=== PATIENT | female | born 1950 | race African-American/Black ===

== ENCOUNTER → 2017-07-22 | Outpatient (CLI) | payer MEDICARE, OTHER ==
[~2017-07-22] MED LIST: ALPR0.5T6 PO; AMLO5TAB2 PO; CELE200C PO; DIPH25CA61 PO; FLUO40CA2 PO; GABA800T2 PO; HYDR12.58 PO; LEVO100T5 PO; LISI-170 PO; MAGN400T7 PO; OMEP-110 PO; OXYB5TAB7 PO; OXYC15TA PO; POTA10TA5 PO; RANI150T4 PO; ZOLP5TAB6 PO
[2017-07-22 13:31] LABS: MICROSCOPIC NOT IND
[2017-07-22 13:39] LABS: CULTURE INDICATED? NO
[2017-07-22 13:44] LABS: BASOPHILS # (AUTO) 0.04 x10^3/uL (0-0.1); BASOPHILS % (AUTO) 1 % (0-1); EOSINOPHILS # (AUTO) 0.29 x10^3/uL (0-0.4); EOSINOPHILS % (AUTO) 5 % (1-7); LYMPHOCYTES # (AUTO) 2.29 x10^3/uL (1-3.4); LYMPHOCYTES % (AUTO) 41 % (22-44); MD NO; MEAN CORPUSCULAR HEMOGLOBIN 30.1 pg (27.0-34.8); MEAN CORPUSCULAR VOLUME 91.1 fL (80-100); MEAN PLATELET VOLUME 7.8 fL (7.4-10.4); MONOCYTES # (AUTO) 0.43 x10^3/uL (0.2-0.8); MONOCYTES % (AUTO) 8 % (2-9); NEUTROPHILS # (AUTO) 2.52 x10^3/uL (1.8-6.8); NEUTROPHILS % (AUTO) 45 % (42-75); PLATELET COUNT 260 x10^3/uL (130-400); RED BLOOD COUNT 3.87 x10^6/uL (3.82-5.3); RED CELL DISTRIBUTION WIDTH 13.5 % (9.6-15.2)
[2017-07-22 13:58] LABS: ALANINE AMINOTRANSFERASE 28 U/L (12-78); ALBUMIN 3.5 g/dL (3.4-5.0); ANION GAP 6 mmol/L (5-15); CALCIUM 8.6 mg/dL (8.5-10.1); CHLORIDE 107 mmol/L (98-107); CREATININE 0.99 mg/dL (0.55-1.02)
[2017-07-22 14:00] LABS: ALKALINE PHOSPHATASE 84 U/L (45-117); BILIRUBIN,TOTAL 0.6 mg/dL (0.2-1.0); TOTAL PROTEIN 7.2 g/dL (6.4-8.2)
== END | disposition home or self-care (01) ==
LOC: STAR 11:25
PROVIDERS: ATTEND Orthopaedic Surgery
DX: Z01.818 Encounter for other preprocedural examination (principal); I49.1 Atrial premature depolarization; M17.11 Unilateral primary osteoarthritis, right knee
CPT/HCPCS: 36415; 80053; 81003; 85025; 87081; 93005

== ENCOUNTER 2017-07-28 06:42 | Inpatient (IN) | payer MEDICARE, OTHER ==
[~2017-07-28] VITALS: Ht 160 cm; Wt 67.7 kg
[~2017-07-28 06:42] MED LIST changes: +EPINEPHRINE 1 MG/ML, 1ML ONE; +KETOROLAC 60 MG/2 ML ONE; +SODIUM CHLORIDE 0.9% 100 ML ONE; +TRANEXAMIC ACID 100 MG/ML, 10ML ONE
[2017-07-28] MEDS ORDERED: ROPIvacaine/PF 0.5%, 20 ML ONE (06:53)
[2017-07-28] MEDS ORDERED: ROPIvacaine/PF 0.2% , 100 ML ONE (06:59)
[2017-07-28] MEDS ORDERED: LACTATED RINGERS 1,000 ML IV SCH (07:21)
[2017-07-28 08:00] VITALS: BP 110/72
[2017-07-28] MEDS ORDERED: VANCOMYCIN PER PHARMACY MC ONE (08:14)
[2017-07-28] MEDS ORDERED: MIDAZOLAM 1 MG/ML, 2ML ONE (08:20)
[2017-07-28] MEDS ORDERED: FENTANYL PF 100 MCG/2ML ONE ×2 (08:20→11:26)
[2017-07-28] MEDS ORDERED: VANCOMYCIN 1,200 MG in SODIUM CHLORIDE 0.9% 250 ML IV ONE (09:00)
[2017-07-28] MEDS ORDERED: MIDAZOLAM 1 MG/ML, 2ML IV PRN (10:30)
[2017-07-28] MEDS ORDERED: HYDROcodone/APAP 7.5-325MG/15ML UDC PO PRN (10:30)
[2017-07-28] MEDS ORDERED: DIAZEPAM 5 MG/ML, 2ML IVPush PRN (10:30)
[2017-07-28] MEDS ORDERED: ONDANSETRON 2MG/ML, 2ML IVPush PRN (10:30)
[2017-07-28] MEDS ORDERED: PROMETHAZINE 12.5 MG SUPP PR PRN ×2 (10:30→12:00)
[2017-07-28] MEDS ORDERED: LABETALOL 5MG/ML, 20ML IV PRN (10:30)
[2017-07-28] MEDS ORDERED: ACETAMINOPHEN 325 MG TABLET PO PRN (10:30)
[2017-07-28] MEDS ORDERED: EPHEDRINE 50 MG/ML, 1ML IVPush PRN (10:30)
[2017-07-28] MEDS ORDERED: hydrALAzine 20 MG/ML, 1ML IV PRN (10:30)
[2017-07-28] MEDS ORDERED: METOPROLOL 1 MG/ML, 5ML IV PRN (10:30)
[2017-07-28] MEDS ORDERED: OXYcodone 5 MG/5 ML ORAL.SOL UDC PO PRN (10:30)
[2017-07-28] MEDS ORDERED: ALBUTEROL SULFATE 2.5 MG/3 ML NPPB PRN (10:30)
[2017-07-28] MEDS ORDERED: HYDROmorphone 1 MG/ML, 1ML IV PRN ×2 (10:30→12:00)
[2017-07-28] MEDS ORDERED: DEXAMETHASONE 4 MG/ML, 1ML ONE (10:48)
[2017-07-28] MEDS ORDERED: CEFAZOLIN 1,000 MG ONE (10:48)
[2017-07-28] MEDS ORDERED: ONDANSETRON 2MG/ML, 2ML ONE (10:48)
[2017-07-28] MEDS ORDERED: PROPOFOL 10 MG/ML, 20ML ONE (10:48)
[2017-07-28] MEDS ORDERED: BUPIVACAINE/PF 0.25% ONE (10:49)
[2017-07-28] MEDS ORDERED: ACETAMINOPHEN 650 MG/20.3 ML UDC ONE (11:26)
[2017-07-28] MEDS ORDERED: OXYcodone 5 MG/5 ML ORAL.SOL UDC ONE (11:27)
[2017-07-28] MEDS: FENTANYL PF 100 MCG/2ML IV PRN ×2 (11:40→11:57)
[2017-07-28 12:00] VITALS: BP 118/77
[2017-07-28] MEDS ORDERED: ZOLPIDEM 5MG TABLET PO PRN (12:00)
[2017-07-28] MEDS ORDERED: TRANEXAMIC ACID 1,000 MG in SODIUM CHLORIDE 0.9% 100 ML IVPB ONE (12:00)
[2017-07-28] MEDS ORDERED: DIAZEPAM 5 MG TABLET PO PRN (12:00)
[2017-07-28] MEDS ORDERED: BISACODYL 10 MG SUPP PR PRN (12:00)
[2017-07-28] MEDS ORDERED: DIPHENHYDRAMINE 50 MG CAPSULE PO PRN (12:00)
[2017-07-28] MEDS ORDERED: ONDANSETRON 4 MG TABLET PO PRN (12:00)
[2017-07-28] MEDS ORDERED: OXYcodone IR 5MG TABLET PO PRN (12:00)
[2017-07-28] MEDS ORDERED: HYDROmorphone 2 MG/ML, 1ML ONE (12:00)
[2017-07-28] MEDS ORDERED: SENNA/DOCUSATE TABLET PO PRN (12:00)
[2017-07-28] MEDS ORDERED: ALUMINUM/MAG/SIMETHICONE 30 ML UDC PO PRN (12:00)
[2017-07-28] MEDS ORDERED: PROMETHAZINE 25 MG/ML, 1ML IM PRN (12:00)
[2017-07-28] MEDS ORDERED: ONDANSETRON 2MG/ML, 2ML IV PRN (12:00)
[2017-07-28] MEDS ORDERED: MAGNESIUM HYDROXIDE 8%, 30ML UDC PO PRN (12:00)
[2017-07-28] MEDS ORDERED: VANCOMYCIN 1,000 MG ONE (13:09)
[2017-07-28] MEDS: D5%-0.45% NACL 1,000 ML IV SCH ×2 (13:49→23:00)
[2017-07-28] MEDS: ACETAMINOPHEN 500 MG TABLET PO SCH ×2 (13:49→20:08)
[2017-07-28 13:54] VITALS: BP 123/80
[2017-07-28] MEDS: OXYBUTYNIN CHLORIDE 5 MG TABLET PO SCH ×2 (16:03→20:08)
[2017-07-28] MEDS: GABAPENTIN 400 MG CAPSULE PO SCH ×2 (16:03→20:08)
[2017-07-28] MEDS: OXYcodone IR 5MG TABLET PO SCH ×3 (16:04→23:32)
[2017-07-28] MEDS: ASPIRIN 81 MG TABLET EC PO SCH (16:04)
[2017-07-28] MEDS: CEFAZOLIN PMX 1GM/50ML 50 ML IVPB SCH (18:01)
[2017-07-28] MEDS: DOCUSATE 100 MG CAPSULE PO SCH (20:08)
[2017-07-28 20:11] VITALS: BP 104/69
[2017-07-29 00:06] VITALS: BP 108/68
[2017-07-29] MEDS: CEFAZOLIN PMX 1GM/50ML 50 ML IVPB SCH (01:58)
[2017-07-29 02:32] VITALS: BP 108/70
[2017-07-29] MEDS: OXYcodone IR 5MG TABLET PO SCH ×3 (04:29→13:26)
[2017-07-29] MEDS: ACETAMINOPHEN 500 MG TABLET PO SCH ×2 (04:29→13:26)
[2017-07-29] MEDS: ASPIRIN 81 MG TABLET EC PO SCH (05:27)
[2017-07-29] MEDS: D5%-0.45% NACL 1,000 ML IV SCH (05:28)
[2017-07-29] MEDS ORDERED: DEXAMETHASONE 4 MG/ML, 1ML IVPush SCH (06:00)
[2017-07-29 06:49] VITALS: BP 100/68
[2017-07-29] MEDS: GABAPENTIN 400 MG CAPSULE PO SCH (08:39)
[2017-07-29] MEDS: DOCUSATE 100 MG CAPSULE PO SCH (08:42)
[2017-07-29] MEDS: OXYBUTYNIN CHLORIDE 5 MG TABLET PO SCH (08:47)
[2017-07-29] MEDS ORDERED: FLUOXETINE HCL 20 MG CAPSULE PO SCH (09:00)
[2017-07-29] MEDS ORDERED: POTASSIUM CHLORIDE 10 MEQ TABLET.ER PO SCH (09:00)
[2017-07-29] MEDS ORDERED: OMEPRAZOLE 20 MG CAPSULE.DR PO SCH (09:00)
[2017-07-29] MEDS ORDERED: AMLODIPINE 5 MG TABLET PO SCH (09:00)
[2017-07-29] MEDS ORDERED: HYDROCHLOROTHIAZIDE 12.5 MG CAPSULE PO SCH (09:00)
[2017-07-29] MEDS ORDERED: LEVOTHYROXINE 100 MCG TABLET PO SCH (09:00)
[2017-07-29] MEDS ORDERED: MAGNESIUM OXIDE 400 MG TABLET PO SCH (09:00)
[2017-07-29] MEDS ORDERED: MULTIVITAMINS/MINERALS TABLET PO SCH (09:00)
[2017-07-29] MEDS ORDERED: LISINOPRIL 20 MG TABLET PO SCH (09:00)
[2017-07-29] MEDS ORDERED: KETOROLAC 30 MG/1 ML IV SCH (12:00)
== END 2017-07-29 15:01 | disposition home or self-care (01) | DRG 470 ==
LOC: ORIP 06:42 → 4NOR 12:55 → DCLOUNGE 07-29 14:38
PROVIDERS: ADMIT Orthopaedic Surgery; ATTEND Orthopaedic Surgery
PROC: 0SRC0J9 Replacement of Right Knee Joint with Synthetic Substitute, Cemented, Open Approach (ICD-10-PCS; principal; 2017-07-28 11:00)
DX: M17.11 Unilateral primary osteoarthritis, right knee (principal); E03.9 Hypothyroidism, unspecified; I10 Essential (primary) hypertension; K21.9 Gastro-esophageal reflux disease without esophagitis; F32.9 Major depressive disorder, single episode, unspecified; G89.29 Other chronic pain; M21.00 Valgus deformity, not elsewhere classified, unspecified site; Z87.891 Personal history of nicotine dependence
CPT/HCPCS: 36415; 85014; 85018; C1713; J0171; J0690; J1100; J1170; J1885; J2250; J2405; J2704; J2795; J3010; J3370; J3490; C1776; J7050; J7120

== ENCOUNTER 2018-04-27 18:18 | Emergency (ER) | payer MEDICARE, OTHER ==
[~2018-04-27] VITALS: Ht 160 cm; Wt 61.0 kg
[~2018-04-27 18:18] MED LIST changes: -AMLO5TAB2 PO; +AMLO5TAB7 PO; -EPINEPHRINE 1 MG/ML, 1ML ONE; -KETOROLAC 60 MG/2 ML ONE; -SODIUM CHLORIDE 0.9% 100 ML ONE; -TRANEXAMIC ACID 100 MG/ML, 10ML ONE
[2018-04-27] MEDS ORDERED: LIDOCAINE-MPF 1%, 5ML INFIL ONE (18:30)
[2018-04-27] MEDS ORDERED: DIPH,PERTUSS(ACELL),TET VAC/PF 0.5 ML IM-VACC ONE ×2 (18:30→18:49)
[2018-04-27] MEDS ORDERED: LIDOCAINE-MPF 1%, 5ML ONE ×2 (18:48→20:54)
[2018-04-27 18:56] LABS: BASOPHILS # (AUTO) 0.07 x10^3/uL (0-0.1); BASOPHILS % (AUTO) 1 % (0-1); EOSINOPHILS # (AUTO) 0.27 x10^3/uL (0-0.4); EOSINOPHILS % (AUTO) 4 % (1-7); LYMPHOCYTES # (AUTO) 2.05 x10^3/uL (1-3.4); LYMPHOCYTES % (AUTO) 31 % (22-44); MD NO; MEAN CORPUSCULAR HEMOGLOBIN 30.8 pg (27.0-34.8); MEAN CORPUSCULAR HGB CONC 33.9 g/dL (32.4-35.8); MEAN CORPUSCULAR VOLUME 90.7 fL (80-100); MEAN PLATELET VOLUME 7.1 fL (7.4-10.4); MONOCYTES # (AUTO) 0.53 x10^3/uL (0.2-0.8); MONOCYTES % (AUTO) 8 % (2-9); NEUTROPHILS # (AUTO) 3.74 x10^3/uL (1.8-6.8); NEUTROPHILS % (AUTO) 56 % (42-75); PLATELET COUNT 260 x10^3/uL (130-400); RED BLOOD COUNT 3.79 x10^6/uL (3.82-5.3); RED CELL DISTRIBUTION WIDTH 13.7 % (9.6-15.2)
[2018-04-27 19:06] LABS: ANION GAP 6 mmol/L (5-15); CHLORIDE 106 mmol/L (98-107); CREATININE 1.32 mg/dL (0.55-1.02)
[2018-04-27] MEDS ORDERED: SODIUM CHLORIDE 0.9% 1,000ML IVBOLUS ONE (20:00)
[2018-04-27 21:43] VITALS: BP 125/81
== END 2018-04-27 21:45 | disposition home or self-care (01) ==
LOC: ED 18:59
DX: S01.01XA Laceration without foreign body of scalp, initial encounter (principal); E86.0 Dehydration; K21.9 Gastro-esophageal reflux disease without esophagitis; M06.9 Rheumatoid arthritis, unspecified; Z85.3 Personal history of malignant neoplasm of breast; Z88.0 Allergy status to penicillin; Z79.82 Long term (current) use of aspirin; Z87.891 Personal history of nicotine dependence; Z88.1 Allergy status to other antibiotic agents; W19.XXXA Unspecified fall, initial encounter; Y93.89 Activity, other specified; Y92.89 Other specified places as the place of occurrence of the external cause; Y99.8 Other external cause status
CPT/HCPCS: 12032; 36415; 70450; 72125; 80048; 85025; 90471; 90715; 96360; 99285; J7030

== ENCOUNTER 2018-05-01 15:45 | Observation (INO) | payer MEDICARE, OTHER ==
[~2018-05-01] VITALS: Ht 157.5 cm; Wt 63.6 kg
[2018-05-01 16:37] LABS: ALANINE AMINOTRANSFERASE 79 U/L (12-78); ALBUMIN 3.9 g/dL (3.4-5.0); ANION GAP 11 mmol/L (5-15); CALCIUM 8.9 mg/dL (8.5-10.1); CHLORIDE 108 mmol/L (98-107); CREATININE 1.23 mg/dL (0.55-1.02)
[2018-05-01 16:39] LABS: ALKALINE PHOSPHATASE 127 U/L (45-117); BILIRUBIN,TOTAL 1.2 mg/dL (0.2-1.0); TOTAL PROTEIN 8.2 g/dL (6.4-8.2)
[2018-05-01 16:48] LABS: MD YES; MEAN CORPUSCULAR HEMOGLOBIN 29.8 pg (27.0-34.8); MEAN CORPUSCULAR HGB CONC 33.6 g/dL (32.4-35.8); MEAN CORPUSCULAR VOLUME 88.8 fL (80-100); MEAN PLATELET VOLUME 7.6 fL (7.4-10.4); PLATELET COUNT 247 x10^3/uL (130-400); RED BLOOD COUNT 4.39 x10^6/uL (3.82-5.3); RED CELL DISTRIBUTION WIDTH 13.5 % (9.6-15.2)
[2018-05-01 16:54] LABS: LYMPH#(MANUAL) 1.29 x10^3/uL (1-3.4); LYMPHS% (MANUAL) 19 % (22-44); MONOS#(MANUAL) 0.34 x10^3/uL (0.3-2.7); MONOS% (MANUAL) 5 % (2-9); SEG#(MANUAL) 5.17 x10^3/uL (1.8-6.8); SEGS% (MANUAL) 76 % (42-75)
[2018-05-01 16:56] LABS: <PLATELET ESTIMATE> ADEQUATE; <PLT MORPHOLOGY> NORMAL PLT MORPH; ANISOCYTOSIS 1+
[2018-05-01 17:02] LABS: FREE T4 (FREE THYROXINE) 1.28 ng/dL (0.76-1.46); THYROID STIMULATING HORMONE 0.95 mIU/L (0.358-3.740)
[2018-05-01 17:55] LABS: MICROSCOPIC NOT IND
[2018-05-01 18:06] LABS: AMPHETAMINE SCREEN, URINE Negative (Negative); BARBITURATE SCREEN, URINE Negative (Negative); BENZODIAZEPINE SCREEN, URINE Negative (Negative); CANNABINOID SCREEN, URINE Negative (Negative); COCAINE SCREEN, URINE Negative (Negative); METHADONE SCREEN, URINE Negative (Negative); OPIATE SCREEN, URINE Negative (Negative)
[2018-05-01 18:08] LABS: CULTURE INDICATED? NO
[2018-05-01 20:00] VITALS: BP 140/102
[2018-05-01] MEDS ORDERED: GABAPENTIN 400 MG CAPSULE ONE (20:44)
[2018-05-01] MEDS ORDERED: ZOLPIDEM 5MG TABLET ONE (20:44)
[2018-05-01] MEDS ORDERED: TEMPLATE NON-FORMULARY MED. (Zolpidem Tartrate** 5 MG) PO SCH (21:00)
[2018-05-01] MEDS ORDERED: TEMPLATE NON-FORMULARY MED. (Ranitidine Hcl** 150 MG) PO SCH (21:00)
[2018-05-01] MEDS ORDERED: TEMPLATE NON-FORMULARY MED. (Gabapentin** 800 MG) PO SCH (21:00)
[2018-05-01] MEDS ORDERED: ACETAMINOPHEN 325 MG TABLET PO PRN (21:00)
[2018-05-02] MEDS ORDERED: LEVOTHYROXINE SODIUM 100 MCG PO SCH (09:00)
[2018-05-02] MEDS ORDERED: HYDROCHLOROTHIAZIDE 12.5 MG CAPSULE PO SCH (09:00)
[2018-05-02] MEDS ORDERED: TEMPLATE NON-FORMULARY MED. (Magnesium Oxide** 400 MG) PO SCH (09:00)
[2018-05-02] MEDS ORDERED: LISINOPRIL 20 MG TABLET PO SCH (09:00)
[2018-05-02] MEDS ORDERED: TEMPLATE NON-FORMULARY MED. (Fluoxetine Hcl** 40 MG) PO SCH (09:00)
[2018-05-02] MEDS ORDERED: TEMPLATE NON-FORMULARY MED. (Amlodipine Besylate** 2.5 MG) PO SCH (09:00)
[2018-05-02] MEDS ORDERED: OMEPRAZOLE 20 MG CAPSULE.DR PO SCH (09:00)
== END 2018-05-01 23:00 | disposition home or self-care (01) ==
LOC: ED 18:47 → EDIP 19:06
PROVIDERS: ADMIT Hospitalist; ATTEND Hospitalist
DX: F22 Delusional disorders (principal); I12.9 Hypertensive chronic kidney disease with stage 1 through stage 4 chronic kidney disease, or unspecified chronic kidney disease; K21.9 Gastro-esophageal reflux disease without esophagitis; E89.0 Postprocedural hypothyroidism; K58.9 Irritable bowel syndrome, unspecified; N18.3 Chronic kidney disease, stage 3 (moderate); Z85.3 Personal history of malignant neoplasm of breast; Z87.891 Personal history of nicotine dependence; Z90.13 Acquired absence of bilateral breasts and nipples; Z90.710 Acquired absence of both cervix and uterus; Z91.14 Patient's other noncompliance with medication regimen; Z96.651 Presence of right artificial knee joint; Z98.1 Arthrodesis status; Z79.899 Other long term (current) drug therapy; Z88.8 Allergy status to other drugs, medicaments and biological substances
CPT/HCPCS: 36415; 70450; 80053; 80307; 81003; 84439; 84443; 85025; 99285; G0378

== ENCOUNTER 2019-10-16 13:50 | Inpatient (IN) | payer MEDICARE, OTHER ==
[~2019-10-16] VITALS: Ht 160 cm; Wt 58.1 kg
[~2019-10-16 13:50] MED LIST changes: +AMLO-150 PO; +AMLO10TA8 PO; +AMLO2.5T5 PO; -AMLO5TAB7 PO; +DICL100T PO; +DULO60CA7 PO; +FAMO20TA7 PO; +FLUO20CA23 PO; +GABA-827 PO; -GABA800T2 PO; +GABA800T5 PO; +HYDR12.517 PO; -HYDR12.58 PO; +HYDROCHLOROTH12.5 MG PO; +LEVO100T PO; +LISI-167 PO; -MAGN400T7 PO; +MAGN400T9 PO; +OXYB5TAB10 PO; -OXYB5TAB7 PO; +OXYC20TA2 PO; +QUET25TA7 PO
[2019-10-16] MEDS ORDERED: DOCUSATE 100 MG CAPSULE PO PRN (14:30)
[2019-10-16] MEDS ORDERED: BISACODYL 10 MG SUPP PR PRN (14:30)
[2019-10-16] MEDS ORDERED: ONDANSETRON ODT 4 MG PO PRN (14:30)
[2019-10-16] MEDS ORDERED: POLYETHYLENE GLYCOL 17 GM PACKET PO PRN (14:30)
[2019-10-16 15:53] VITALS: BP 150/95
[2019-10-16] MEDS ORDERED: MAGN400T50 PO (16:43)
[2019-10-16] MEDS ORDERED: ERGO500018 PO (16:43)
[2019-10-16 19:15] VITALS: BP 125/82
[2019-10-16] MEDS: ACETAMINOPHEN 325 MG TABLET PO PRN (20:33)
[2019-10-16] MEDS: LORazepam 1MG TABLET PO PRN (20:33)
[2019-10-16] MEDS: GABAPENTIN 400 MG CAPSULE PO SCH (20:34)
[2019-10-17] MEDS: QUETIAPINE 25MG TABLET PO PRN ×2 (04:18→22:16)
[2019-10-17 06:19] LABS: FREE T4 (FREE THYROXINE) 1.5 ng/dL (0.76-1.46); LDL/HDL RATIO 0.8 (0.5-3.0)
[2019-10-17 07:14] LABS: MICROSCOPIC INDICATED
[2019-10-17 07:24] LABS: CULTURE INDICATED? YES
[2019-10-17 07:51] VITALS: BP 144/91
[2019-10-17] MEDS: LORazepam 1MG TABLET PO PRN (08:42)
[2019-10-17] MEDS: DULOXETINE 30 MG CAPSULE.DR PO SCH (08:42)
[2019-10-17] MEDS: GABAPENTIN 400 MG CAPSULE PO SCH ×2 (08:42→20:10)
[2019-10-17] MEDS: OXYcodone IR 5MG TABLET PO SCH ×3 (11:00→20:10)
--- NOTE | 2019-10-17 11:13 | NUR ---
Recommend support with all IADLs/ADLs at time of discharge. Addendum: 10/17/19 at 1114 by Sindy HILL Amended: Links added.
[2019-10-17 19:15] VITALS: BP 150/101
[2019-10-17] MEDS ORDERED: GABAPENTIN 400 MG CAPSULE PO SCH (21:00)
[2019-10-17 21:45] VITALS: BP 116/82
[2019-10-18] MEDS: ACETAMINOPHEN 325 MG TABLET PO PRN (02:12)
[2019-10-18] MEDS: OMEPRAZOLE 20 MG CAPSULE.DR PO SCH (05:46)
[2019-10-18] MEDS: LEVOTHYROXINE 75 MCG TABLET PO SCH (05:46)
[2019-10-18 07:32] VITALS: BP 110/79
[2019-10-18] MEDS: DULOXETINE 30 MG CAPSULE.DR PO SCH (08:37)
[2019-10-18] MEDS: HYDROCHLOROTHIAZIDE 12.5 MG CAPSULE PO SCH (08:37)
[2019-10-18] MEDS: AMLODIPINE 10 MG TAB PO SCH (08:38)
[2019-10-18] MEDS: GABAPENTIN 400 MG CAPSULE PO SCH ×2 (08:38→20:55)
[2019-10-18] MEDS: OXYcodone IR 5MG TABLET PO SCH ×3 (08:40→20:55)
[2019-10-18] MEDS: CHOLECALCIFEROL 1,000 UNIT TABLET PO SCH (08:41)
[2019-10-18] MEDS ORDERED: TEMPLATE NON-FORMULARY MED. (Duloxetine Hcl (Cymbalta**) 60 MG) PO SCH (09:00)
[2019-10-18 19:45] VITALS: BP 138/95
[2019-10-18] MEDS: QUETIAPINE 25MG TABLET PO PRN (20:56)
[2019-10-19] MEDS: ACETAMINOPHEN 325 MG TABLET PO PRN ×2 (03:58→12:42)
[2019-10-19] MEDS: LEVOTHYROXINE 75 MCG TABLET PO SCH (05:04)
[2019-10-19] MEDS: OMEPRAZOLE 20 MG CAPSULE.DR PO SCH (05:04)
[2019-10-19] MEDS: LORazepam 1MG TABLET PO PRN (05:34)
[2019-10-19 07:30] VITALS: BP 116/82
[2019-10-19] MEDS: DULOXETINE 30 MG CAPSULE.DR PO SCH (08:29)
[2019-10-19] MEDS: CHOLECALCIFEROL 1,000 UNIT TABLET PO SCH (08:31)
[2019-10-19] MEDS: OXYcodone IR 5MG TABLET PO SCH ×3 (08:34→20:47)
[2019-10-19] MEDS: GABAPENTIN 400 MG CAPSULE PO SCH ×2 (08:35→20:44)
[2019-10-19] MEDS: AMLODIPINE 10 MG TAB PO SCH (08:35)
[2019-10-19] MEDS: HYDROCHLOROTHIAZIDE 12.5 MG CAPSULE PO SCH (08:35)
[2019-10-19] MEDS: MAGNESIUM HYDROXIDE 8%, 30ML UDC PO PRN (16:15)
[2019-10-19 17:08] VITALS: BP 107/72
[2019-10-19 19:15] VITALS: BP 111/79
[2019-10-20] MEDS: OMEPRAZOLE 20 MG CAPSULE.DR PO SCH (06:02)
[2019-10-20] MEDS: LEVOTHYROXINE 75 MCG TABLET PO SCH (06:02)
[2019-10-20] MEDS: ACETAMINOPHEN 325 MG TABLET PO PRN ×2 (06:02→13:48)
[2019-10-20 07:51] VITALS: BP 136/88
[2019-10-20] MEDS: CHOLECALCIFEROL 1,000 UNIT TABLET PO SCH (08:29)
[2019-10-20] MEDS: DULOXETINE 30 MG CAPSULE.DR PO SCH (08:29)
[2019-10-20] MEDS: GABAPENTIN 400 MG CAPSULE PO SCH ×2 (08:29→20:31)
[2019-10-20] MEDS: HYDROCHLOROTHIAZIDE 12.5 MG CAPSULE PO SCH (08:30)
[2019-10-20] MEDS: AMLODIPINE 10 MG TAB PO SCH (08:30)
[2019-10-20] MEDS: OXYcodone IR 5MG TABLET PO SCH ×3 (08:32→20:31)
[2019-10-20] MEDS: MAGNESIUM HYDROXIDE 8%, 30ML UDC PO PRN (13:54)
[2019-10-20] MEDS ORDERED: LOPERAMIDE 2 MG CAPSULE PO PRN (17:00)
[2019-10-20] MEDS: LORazepam 1MG TABLET PO PRN (17:24)
[2019-10-21] MEDS: OMEPRAZOLE 20 MG CAPSULE.DR PO SCH (05:59)
[2019-10-21] MEDS: LEVOTHYROXINE 75 MCG TABLET PO SCH (05:59)
[2019-10-21 07:00] VITALS: BP 111/76
[2019-10-21] MEDS: OXYcodone IR 5MG TABLET PO SCH ×3 (08:59→20:57)
[2019-10-21] MEDS: HYDROCHLOROTHIAZIDE 12.5 MG CAPSULE PO SCH (09:00)
[2019-10-21] MEDS: DULOXETINE 30 MG CAPSULE.DR PO SCH (09:00)
[2019-10-21] MEDS: AMLODIPINE 10 MG TAB PO SCH (09:00)
[2019-10-21] MEDS: GABAPENTIN 400 MG CAPSULE PO SCH ×2 (09:00→20:58)
[2019-10-21] MEDS: CHOLECALCIFEROL 1,000 UNIT TABLET PO SCH (09:00)
[2019-10-21] MEDS: ACETAMINOPHEN 325 MG TABLET PO PRN (15:03)
[2019-10-21 19:52] VITALS: BP 115/79
[2019-10-22] MEDS: ACETAMINOPHEN 325 MG TABLET PO PRN (04:24)
[2019-10-22] MEDS: OMEPRAZOLE 20 MG CAPSULE.DR PO SCH (05:38)
[2019-10-22] MEDS: LEVOTHYROXINE 75 MCG TABLET PO SCH (05:39)
[2019-10-22 07:00] VITALS: BP 112/77
[2019-10-22 07:59] VITALS: BP 112/77
[2019-10-22] MEDS: CHOLECALCIFEROL 1,000 UNIT TABLET PO SCH (08:02)
[2019-10-22] MEDS: OXYcodone IR 5MG TABLET PO SCH ×3 (08:02→20:01)
[2019-10-22] MEDS: GABAPENTIN 400 MG CAPSULE PO SCH ×2 (08:02→19:59)
[2019-10-22] MEDS: AMLODIPINE 10 MG TAB PO SCH (08:02)
[2019-10-22] MEDS: HYDROCHLOROTHIAZIDE 12.5 MG CAPSULE PO SCH (08:03)
[2019-10-22] MEDS: DULOXETINE 30 MG CAPSULE.DR PO SCH (08:03)
[2019-10-22] MEDS: QUETIAPINE 25MG TABLET PO PRN (16:24)
[2019-10-22 19:15] VITALS: BP 124/85
[2019-10-23] MEDS: OMEPRAZOLE 20 MG CAPSULE.DR PO SCH (05:54)
[2019-10-23] MEDS: LEVOTHYROXINE 75 MCG TABLET PO SCH (05:55)
[2019-10-23] MEDS: CHOLECALCIFEROL 1,000 UNIT TABLET PO SCH (09:00)
[2019-10-23] MEDS: GABAPENTIN 400 MG CAPSULE PO SCH ×2 (09:00→20:38)
[2019-10-23] MEDS: OXYcodone IR 5MG TABLET PO SCH ×3 (09:00→20:41)
[2019-10-23] MEDS: AMLODIPINE 10 MG TAB PO SCH (09:00)
[2019-10-23] MEDS: DULOXETINE 30 MG CAPSULE.DR PO SCH (09:01)
[2019-10-23] MEDS: HYDROCHLOROTHIAZIDE 12.5 MG CAPSULE PO SCH (09:01)
[2019-10-23] MEDS: ACETAMINOPHEN 325 MG TABLET PO PRN (14:47)
[2019-10-23 16:43] VITALS: BP 110/77
[2019-10-23 19:45] VITALS: BP 126/83
[2019-10-23] MEDS: QUETIAPINE 25MG TABLET PO PRN (21:56)
[2019-10-24] MEDS: ACETAMINOPHEN 325 MG TABLET PO PRN (02:57)
[2019-10-24] MEDS: LORazepam 1MG TABLET PO PRN (02:57)
[2019-10-24 07:30] VITALS: BP 144/94
[2019-10-24] MEDS: AMLODIPINE 10 MG TAB PO SCH (08:15)
[2019-10-24] MEDS: HYDROCHLOROTHIAZIDE 12.5 MG CAPSULE PO SCH (08:15)
[2019-10-24] MEDS: LEVOTHYROXINE 75 MCG TABLET PO SCH (08:15)
[2019-10-24] MEDS: GABAPENTIN 400 MG CAPSULE PO SCH ×2 (08:15→20:28)
[2019-10-24] MEDS: DULOXETINE 30 MG CAPSULE.DR PO SCH (08:16)
[2019-10-24] MEDS: OXYcodone IR 5MG TABLET PO SCH ×3 (08:16→20:30)
[2019-10-24] MEDS: CHOLECALCIFEROL 1,000 UNIT TABLET PO SCH (08:16)
[2019-10-24] MEDS: OMEPRAZOLE 20 MG CAPSULE.DR PO SCH (08:20)
[2019-10-24 19:43] VITALS: BP 110/74
[2019-10-24] MEDS: QUETIAPINE 25MG TABLET PO PRN (22:07)
[2019-10-25] MEDS: LORazepam 1MG TABLET PO PRN (02:59)
[2019-10-25] MEDS: OMEPRAZOLE 20 MG CAPSULE.DR PO SCH (05:44)
[2019-10-25] MEDS: LEVOTHYROXINE 75 MCG TABLET PO SCH (05:44)
[2019-10-25 07:35] VITALS: BP 141/91
[2019-10-25] MEDS: HYDROCHLOROTHIAZIDE 12.5 MG CAPSULE PO SCH (08:31)
[2019-10-25] MEDS: CHOLECALCIFEROL 1,000 UNIT TABLET PO SCH (08:31)
[2019-10-25] MEDS: AMLODIPINE 10 MG TAB PO SCH (08:31)
[2019-10-25] MEDS: GABAPENTIN 400 MG CAPSULE PO SCH ×2 (08:31→21:26)
[2019-10-25] MEDS: DULOXETINE 30 MG CAPSULE.DR PO SCH (08:31)
[2019-10-25] MEDS: OXYcodone IR 5MG TABLET PO SCH ×3 (08:32→21:25)
[2019-10-25] MEDS: ACETAMINOPHEN 325 MG TABLET PO PRN (12:32)
[2019-10-25 19:15] VITALS: BP 106/74
[2019-10-25] MEDS: QUETIAPINE 25MG TABLET PO PRN (21:26)
[2019-10-26] MEDS: OMEPRAZOLE 20 MG CAPSULE.DR PO SCH (06:00)
[2019-10-26] MEDS: LEVOTHYROXINE 75 MCG TABLET PO SCH (06:01)
[2019-10-26 07:29] VITALS: BP 139/94
[2019-10-26] MEDS: GABAPENTIN 400 MG CAPSULE PO SCH (08:42)
[2019-10-26] MEDS: HYDROCHLOROTHIAZIDE 12.5 MG CAPSULE PO SCH (08:42)
[2019-10-26] MEDS: DULOXETINE 30 MG CAPSULE.DR PO SCH (08:42)
[2019-10-26] MEDS: AMLODIPINE 10 MG TAB PO SCH (08:43)
[2019-10-26] MEDS: CHOLECALCIFEROL 1,000 UNIT TABLET PO SCH (08:43)
[2019-10-26] MEDS: OXYcodone IR 5MG TABLET PO SCH (08:45)
== END 2019-10-26 09:27 | disposition home or self-care (01) | DRG 885 ==
LOC: 3E 16:23
PROVIDERS: ADMIT Psychiatry & Neurology Psychosomatic Medicine; ATTEND Psychiatry & Neurology Psychosomatic Medicine
DX: F31.2 Bipolar disorder, current episode manic severe with psychotic features (principal); F11.20 Opioid dependence, uncomplicated; F29 Unspecified psychosis not due to a substance or known physiological condition; Z88.6 Allergy status to analgesic agent; Z88.5 Allergy status to narcotic agent; Z88.8 Allergy status to other drugs, medicaments and biological substances; E03.9 Hypothyroidism, unspecified; G89.29 Other chronic pain; I10 Essential (primary) hypertension; K21.9 Gastro-esophageal reflux disease without esophagitis; K58.9 Irritable bowel syndrome, unspecified; M19.90 Unspecified osteoarthritis, unspecified site; Z79.899 Other long term (current) drug therapy
CPT/HCPCS: 36415; 71045; 80061; 81001; 82140; 84439; 84443; 87086; 93005; 92523-GN

== ENCOUNTER 2019-11-09 11:05 | Inpatient (IN) | payer MEDICARE, OTHER ==
[~2019-11-09] VITALS: Ht 160 cm; Wt 58.0 kg
[~2019-11-09 11:05] MED LIST changes: +ERGO500018 PO; +MAGN400T50 PO; -OXYC15TA PO; +OXYC15TA3 PO
[2019-11-09 11:54] LABS: BASOPHILS # (AUTO) 0.05 x10^3/uL (0-0.1); BASOPHILS % (AUTO) 1 % (0-1); EOSINOPHILS # (AUTO) 0.23 x10^3/uL (0-0.4); EOSINOPHILS % (AUTO) 5 % (1-7); LYMPHOCYTES # (AUTO) 2.19 x10^3/uL (1-3.4); LYMPHOCYTES % (AUTO) 45 % (22-44); MD NO; MEAN CORPUSCULAR HEMOGLOBIN 29.6 pg (27.0-34.8); MEAN CORPUSCULAR VOLUME 89.7 fL (80-100); MEAN PLATELET VOLUME 7.5 fL (7.4-10.4); MONOCYTES # (AUTO) 0.43 x10^3/uL (0.2-0.8); MONOCYTES % (AUTO) 9 % (2-9); NEUTROPHILS # (AUTO) 1.98 x10^3/uL (1.8-6.8); NEUTROPHILS % (AUTO) 41 % (42-75); PLATELET COUNT 274 x10^3/uL (130-400); RED BLOOD COUNT 4.27 x10^6/uL (3.82-5.3); RED CELL DISTRIBUTION WIDTH 14.2 % (9.6-15.2)
[2019-11-09 12:03] LABS: ALBUMIN 3.7 g/dL (3.4-5.0); ANION GAP 6 mmol/L (5-15); CALCIUM 9.5 mg/dL (8.5-10.1); CHLORIDE 102 mmol/L (98-107); CREATININE 3.16 mg/dL (0.55-1.02)
--- NOTE | 2019-11-09 12:24 | NUR ---
Patient roomed and gowned, continuous blood pressure and SPO2 monitoring in place. Patient is calm and cooperative, able to give history of nausea/vomiting x5 days with decreased appetite and weight loss. No vomiting while in emergency department, states she has not vomited in the last 24 hours.
[2019-11-09] MEDS ORDERED: SODIUM CHLORIDE 0.9% 1,000ML IVBOLUS ONE (12:30)
[2019-11-09] MEDS ORDERED: SODIUM CHLORIDE FLUSH 10ML SYR IVF ONE (12:30)
--- NOTE | 2019-11-09 12:40 | NUR ---
Patient transported for CT
--- NOTE | 2019-11-09 13:44 | NUR ---
Patient up to bedside commode for urine sample with standby assist and back to bed with spouse at bedside. UA collected and sent to lab. Call andujar within place.
--- NOTE | 2019-11-09 13:56 | NUR ---
Patient encouraged to wear cervical collar and not pull on it or loosen it. Cervical collar adjusted and tightened for proper fit. Patient is intermittently compliant but continues to pull on collar despite multiple attempts to educate.
[2019-11-09 13:57] LABS: MICROSCOPIC NOT IND
--- NOTE | 2019-11-09 14:48 | NUR ---
Patient resting in gurney with spouse at bedside, IV fluids infusing, no complaints or requests at this time. Call andujar within reach.
[2019-11-09 15:37] VITALS: BP 109/73
--- NOTE | 2019-11-09 16:03 | NUR ---
Patient states she is hungry, per Dr. Welsh OK for patient to eat, diet tray ordered.
[2019-11-09] MEDS ORDERED: SODIUM CHLORIDE 0.9% 1,000 ML IV SCH (16:24)
[2019-11-09] MEDS ORDERED: ACETAMINOPHEN 325 MG TABLET PO PRN (16:30)
[2019-11-09] MEDS ORDERED: ONDANSETRON ODT 4 MG PO PRN (16:30)
[2019-11-09] MEDS ORDERED: HEPARIN 5,000 UNITS/ML, 1ML SQ SCH (16:30)
[2019-11-09] MEDS ORDERED: ONDANSETRON 2MG/ML, 2ML IVPush PRN (16:30)
--- NOTE | 2019-11-09 17:26 | NUR ---
Note luis m in [facility] - 11/09/19 at 1727 by [email or web address] Report received from MICHELLE Lanza. This RN to assume care. Awaiting ERP to see patient.
--- NOTE | 2019-11-09 17:27 | NUR ---
Report received from MICHELLE Lanza. This RN to assume care. Patient is a medical hold. Awaiting room.
--- NOTE | 2019-11-09 17:42 | NUR ---
Report given to MICHELLE Roa. Patient to be transferred to room 341.
[2019-11-09] MEDS ORDERED: OXYcodone IR 5MG TABLET PO PRN (18:00)
[2019-11-09] MEDS ORDERED: GABAPENTIN 300 MG CAPSULE PO SCH (21:00)
[2019-11-10] MEDS ORDERED: OMEPRAZOLE 20 MG CAPSULE.DR PO SCH (06:00)
[2019-11-10] MEDS ORDERED: LEVOTHYROXINE 100 MCG TABLET PO SCH (06:00)
[2019-11-10] MEDS ORDERED: MAGNESIUM OXIDE 400 MG TABLET PO SCH (09:00)
[2019-11-10] MEDS ORDERED: DULOXETINE 30 MG CAPSULE.DR PO SCH (09:00)
[2019-11-10] MEDS ORDERED: CHOLECALCIFEROL 1,000 UNIT TABLET PO SCH (09:00)
== END 2019-11-09 20:00 | disposition left against medical advice (07) | DRG 640 ==
LOC: ED 12:26 → EDIP 14:10 → 3N 17:52
PROVIDERS: ADMIT Hospitalist; ATTEND Hospitalist
DX: E86.0 Dehydration (principal); N17.0 Acute kidney failure with tubular necrosis; S12.01XA Stable burst fracture of first cervical vertebra, initial encounter for closed fracture; E87.1 Hypo-osmolality and hyponatremia; F31.9 Bipolar disorder, unspecified; G31.9 Degenerative disease of nervous system, unspecified; G89.29 Other chronic pain; K21.9 Gastro-esophageal reflux disease without esophagitis; I10 Essential (primary) hypertension; K58.9 Irritable bowel syndrome, unspecified; M06.9 Rheumatoid arthritis, unspecified; M19.90 Unspecified osteoarthritis, unspecified site; M34.1 CR(E)ST syndrome; E89.0 Postprocedural hypothyroidism; G62.9 Polyneuropathy, unspecified; R41.0 Disorientation, unspecified; M50.30 Other cervical disc degeneration, unspecified cervical region; Z79.891 Long term (current) use of opiate analgesic; Z85.3 Personal history of malignant neoplasm of breast; Z87.891 Personal history of nicotine dependence; Z90.13 Acquired absence of bilateral breasts and nipples; Z90.710 Acquired absence of both cervix and uterus; Z96.653 Presence of artificial knee joint, bilateral; Z98.1 Arthrodesis status; Z88.6 Allergy status to analgesic agent; Z88.5 Allergy status to narcotic agent; Z88.0 Allergy status to penicillin; Z79.1 Long term (current) use of non-steroidal anti-inflammatories (NSAID); Z79.890 Hormone replacement therapy; Z90.49 Acquired absence of other specified parts of digestive tract; W01.10XA Fall on same level from slipping, tripping and stumbling with subsequent striking against unspecified object, initial encounter; Z53.29 Procedure and treatment not carried out because of patient's decision for other reasons
CPT/HCPCS: 36415; 70450; 72125; 80048; 81003; 82040; 85025; 99285; G0378; J7030

== ENCOUNTER 2019-11-09 20:56 | Emergency (ER) | payer MEDICARE, OTHER ==
[~2019-11-09] VITALS: Ht 160 cm; Wt 58.0 kg
[2019-11-09 21:00] VITALS: BP 118/90
--- NOTE | 2019-11-09 21:05 | NUR ---
Md to triage to assess pt. Pt just would like access d/c from L side port. States heparin before d/c is typical. ERMD states to d/c and d/c from triage.
--- NOTE | 2019-11-09 21:11 | NUR ---
Port heparanized and removed via ERMD order. Pt d/c from triage.
== END 2019-11-09 21:14 ==
LOC: ED 21:08
DX: Z45.2 Encounter for adjustment and management of vascular access device (principal); I10 Essential (primary) hypertension; M06.9 Rheumatoid arthritis, unspecified
CPT/HCPCS: 99281

== ENCOUNTER 2019-11-10 16:50 | Emergency (ER) | payer MEDICARE, OTHER ==
[~2019-11-10] VITALS: Ht 160 cm; Wt 58.1 kg
--- NOTE | 2019-11-10 17:44 | NUR ---
THIS IS A 68 YO FEMALE WHO PRESENTS TO THE ER C/O N/V X 10 DAYS. PT NONTENDER TO PALP ON ABDOMEN. PT AO X 4. SKIN WARM AND DRY AND APPROPRIATE FOR ETHINCITY. SON AT BEDSIDE. PT C/O NAUSEA. PT ON CONT BP AND O2 MONITORS. CALL LIGHT WITHIN REACH. WILL CONT TO MONITOR PT.
[2019-11-10 17:45] LABS: BASOPHILS # (AUTO) 0.12 x10^3/uL (0-0.1); BASOPHILS % (AUTO) 2 % (0-1); EOSINOPHILS # (AUTO) 0.15 x10^3/uL (0-0.4); EOSINOPHILS % (AUTO) 3 % (1-7); LYMPHOCYTES # (AUTO) 2.48 x10^3/uL (1-3.4); LYMPHOCYTES % (AUTO) 48 % (22-44); MD NO; MEAN CORPUSCULAR HEMOGLOBIN 29.3 pg (27.0-34.8); MEAN CORPUSCULAR HGB CONC 32.6 g/dL (32.4-35.8); MEAN CORPUSCULAR VOLUME 89.7 fL (80-100); MEAN PLATELET VOLUME 7.6 fL (7.4-10.4); MONOCYTES # (AUTO) 0.57 x10^3/uL (0.2-0.8); MONOCYTES % (AUTO) 11 % (2-9); NEUTROPHILS # (AUTO) 1.87 x10^3/uL (1.8-6.8); NEUTROPHILS % (AUTO) 36 % (42-75); PLATELET COUNT 253 x10^3/uL (130-400); RED BLOOD COUNT 3.97 x10^6/uL (3.82-5.3); RED CELL DISTRIBUTION WIDTH 14.2 % (9.6-15.2)
[2019-11-10 18:02] LABS: ANION GAP 5 mmol/L (5-15); CALCIUM 9.2 mg/dL (8.5-10.1); CHLORIDE 105 mmol/L (98-107); CREATININE 1.85 mg/dL (0.55-1.02)
[2019-11-10] MEDS ORDERED: ONDANSETRON ODT 8 MG PO ONE (18:30)
[2019-11-10] MEDS ORDERED: ONDANSETRON ODT 8 MG ONE (18:31)
--- NOTE | 2019-11-10 18:41 | NUR ---
PT MEDICATED ORDERED FOR NAUSEA AND PROVIDED WITH WATER. PT AND AT BEDSIDE VERBALIZE UNDERSTANDING OF RESULTS AND POC. PT AO X 4. SKIN WARM AND DRY AND APPROPRIATE FOR EHTNICITY. CALL LIGHT WITHIN REACH. WILL CONT TO MONITOR PT.
[2019-11-10 18:45] VITALS: BP 144/95
--- NOTE | 2019-11-10 18:47 | NUR ---
REPORT TO MICHELLE FARRIS WHO ASSUMED CARE OF PT.
--- NOTE | 2019-11-10 19:00 | NUR ---
REPORT RC'VD FROM TARIK MARTINEZ. PT SITTING UP IN [place] WITH SON AT . PT STATES SHE DRANK SOME WATER AND FEELS OKAY TO BE DISCHARGED. AMBULATED TO INDEPENDENTLY WITH CANE.
--- NOTE | 2019-11-10 19:13 | NUR ---
D/C INSTRUCTIONS, MEDS & F/U APPT'S RV'WD WITH PT AND SON. RX GIVEN X1. INSTRUCTED PT TO RETURN TO ED FOR ANY NEW OR WORSENING SYMPTOMS. PT AMBULATED OUT OF ED WITH SON WITHOUT DIFFICULTY.
== END 2019-11-10 19:15 | disposition home or self-care (01) ==
LOC: ED 17:31
DX: R51 Headache (principal); N28.9 Disorder of kidney and ureter, unspecified; E86.0 Dehydration; R11.2 Nausea with vomiting, unspecified; I10 Essential (primary) hypertension; I49.1 Atrial premature depolarization; K21.9 Gastro-esophageal reflux disease without esophagitis; Z90.89 Acquired absence of other organs; Z90.49 Acquired absence of other specified parts of digestive tract; Z90.710 Acquired absence of both cervix and uterus; Z87.891 Personal history of nicotine dependence; Z90.10 Acquired absence of unspecified breast and nipple; Z85.3 Personal history of malignant neoplasm of breast
CPT/HCPCS: 36415; 80048; 85025; 93005; 99284; Q0162

== ENCOUNTER 2019-11-24 17:56 | Emergency (ER) | payer MEDICARE, OTHER ==
[~2019-11-24] VITALS: Ht 162.6 cm; Wt 57.4 kg
--- NOTE | 2019-11-24 18:33 | NUR ---
THIS IS A 68 YO FEMALE COMING IN FOR INTERMITTENT GUZMAN FOR THE PAST MONTH AFTER MGLF AND 3 FRACTURES IN CERVICAL SPINE. PATIENT IS SCHEDULED FOR A "NERVE TEST" FRIDAY AND SURGERY AT END OF MONTH. PATIENT CURRENTLY C/O BILATERAL SHOULDER PAIN, SEES PAIN DOCTOR AND USUALLY GETS STEROID INJECTION FOR SHOULDER PAIN, DID NOT RECEIVE INJECTIONS AT VISIT ON October DUE TO "QUESTIONABLE KIDNEY FUNCTION". A&OX4, VSS AT THIS TIME, SPO2 AND BP MONITORING IN PLACE. SIGNIFICANT OTHER IN ROOM, CALL LIGHT IN REACH.
[2019-11-24] MEDS ORDERED: SODIUM CHLORIDE 0.9% 1,000 ML IV ONE (18:38)
[2019-11-24] MEDS ORDERED: ONDANSETRON 2MG/ML, 2ML ONE (18:58)
[2019-11-24] MEDS ORDERED: HYDROmorphone 1 MG/ML, 1ML INJ ONE (18:58)
[2019-11-24] MEDS ORDERED: ONDANSETRON 2MG/ML, 2ML IVPush ONE (19:00)
[2019-11-24] MEDS ORDERED: HYDROmorphone 2 MG/ML, 1ML IVPush PRN (19:00)
[2019-11-24] MEDS ORDERED: SODIUM CHLORIDE FLUSH 10ML SYR IVF ONE (19:00)
[2019-11-24 19:03] LABS: BASOPHILS # (AUTO) 0.04 x10^3/uL (0-0.1); BASOPHILS % (AUTO) 1 % (0-1); EOSINOPHILS # (AUTO) 0.19 x10^3/uL (0-0.4); EOSINOPHILS % (AUTO) 3 % (1-7); LYMPHOCYTES % (AUTO) 36 % (22-44); MD NO; MEAN CORPUSCULAR HGB CONC 32.5 g/dL (32.4-35.8); MEAN CORPUSCULAR VOLUME 89.3 fL (80-100); MEAN PLATELET VOLUME 7.3 fL (7.4-10.4); MONOCYTES # (AUTO) 0.49 x10^3/uL (0.2-0.8); MONOCYTES % (AUTO) 9 % (2-9); NEUTROPHILS # (AUTO) 2.83 x10^3/uL (1.8-6.8); NEUTROPHILS % (AUTO) 51 % (42-75); PLATELET COUNT 273 x10^3/uL (130-400); RED BLOOD COUNT 4.34 x10^6/uL (3.82-5.3); RED CELL DISTRIBUTION WIDTH 14.4 % (9.6-15.2)
[2019-11-24 19:11] LABS: ALBUMIN 3.7 g/dL (3.4-5.0); ANION GAP 7 mmol/L (5-15); CALCIUM 9.2 mg/dL (8.5-10.1); CHLORIDE 110 mmol/L (98-107); CREATININE 1.35 mg/dL (0.55-1.02)
--- NOTE | 2019-11-24 19:27 | NUR ---
PIV PLACED, PATIENT MEDICATED PER EMAR
--- NOTE | 2019-11-24 20:18 | NUR ---
ERP TO ROOM FOR RECHECK
[2019-11-24 20:23] VITALS: BP 113/82
--- NOTE | 2019-11-24 20:30 | NUR ---
Patient given discharge instructions and they have confirmed that they understand the instructions. Patient ambulatory with steady gait.
== END 2019-11-24 20:37 | disposition home or self-care (01) ==
LOC: ED 18:46
DX: R51 Headache (principal); M54.2 Cervicalgia; R11.2 Nausea with vomiting, unspecified; I10 Essential (primary) hypertension; K21.9 Gastro-esophageal reflux disease without esophagitis; M06.9 Rheumatoid arthritis, unspecified; Z90.89 Acquired absence of other organs; Z90.710 Acquired absence of both cervix and uterus; Z90.49 Acquired absence of other specified parts of digestive tract; Z90.10 Acquired absence of unspecified breast and nipple; Z85.3 Personal history of malignant neoplasm of breast
CPT/HCPCS: 36415; 80048; 82040; 85025; 96361; 96374; 96375; 99284; J1170; J2405; J7030

== ENCOUNTER 2020-06-13 19:19 | Emergency (ER) | payer MEDICARE, OTHER ==
[~2020-06-13] VITALS: Ht 167.6 cm; Wt 56.4 kg
[~2020-06-13 19:19] MED LIST changes: +AMLO-211 PO; -AMLO10TA8 PO
[2020-06-13 19:26] VITALS: BP 104/78
[2020-06-13] MEDS ORDERED: ONDANSETRON ODT 4 MG PO ONE (20:00)
--- NOTE | 2020-06-13 20:40 | NUR ---
called pt to room from lobby
[2020-06-13] MEDS ORDERED: ONDANSETRON ODT 4 MG ONE (20:50)
[2020-06-13 21:09] LABS: BASOPHILS % (AUTO) 1 % (0-1); EOSINOPHILS % (AUTO) 2 % (1-7); LYMPHOCYTES % (AUTO) 27 % (22-44); MD NO; MEAN CORPUSCULAR HEMOGLOBIN 30.3 pg (27.0-34.8); MEAN PLATELET VOLUME 7.1 fL (7.4-10.4); MONOCYTES % (AUTO) 9 % (2-9); NEUTROPHILS % (AUTO) 61 % (42-75); PLATELET COUNT 264 x10^3/uL (130-400); RED BLOOD COUNT 3.99 x10^6/uL (3.82-5.3); RED CELL DISTRIBUTION WIDTH 14.6 % (9.6-15.2)
[2020-06-13 21:17] LABS: ALBUMIN 3.5 g/dL (3.4-5.0); ANION GAP 6 mmol/L (5-15); CALCIUM 8.7 mg/dL (8.5-10.1); CHLORIDE 110 mmol/L (98-107)
[2020-06-13 21:18] LABS: CREATININE 1.17 mg/dL (0.55-1.02)
== END 2020-06-13 22:00 | disposition home or self-care (01) ==
LOC: ED 19:49
DX: L03.115 Cellulitis of right lower limb (principal); K21.9 Gastro-esophageal reflux disease without esophagitis; I10 Essential (primary) hypertension; Z85.3 Personal history of malignant neoplasm of breast
CPT/HCPCS: 36415; 80048; 82040; 85025; 99282; Q0162

== ENCOUNTER 2020-07-04 16:53 | Observation (INO) | payer OTHER ==
[~2020-07-04] VITALS: Ht 160 cm; Wt 54.1 kg
--- NOTE | 2020-07-04 17:12 | NUR ---
bib amb from home with c/o n/v, sob, chest pressure, and bump to L breast that started this morning.
--- NOTE | 2020-07-04 17:16 | NUR ---
XR AT BEDSIDE
[2020-07-04] MEDS ORDERED: ONDANSETRON 2MG/ML, 2ML ONE (17:20)
[2020-07-04] MEDS ORDERED: HYDROmorphone 2 MG/ML, 1ML ONE (17:20)
[2020-07-04] MEDS ORDERED: ONDANSETRON 2MG/ML, 2ML IVPush ONE (17:30)
[2020-07-04] MEDS ORDERED: HYDROmorphone 1 MG/ML, 1ML INJ IM ONE (17:30)
[2020-07-04 17:41] LABS: BASOPHILS % (AUTO) 1 % (0-1); EOSINOPHILS % (AUTO) 2 % (1-7); LYMPHOCYTES % (AUTO) 19 % (22-44); MEAN CORPUSCULAR HEMOGLOBIN 30.5 pg (27.0-34.8); MEAN CORPUSCULAR HGB CONC 33.3 g/dL (32.4-35.8); MEAN PLATELET VOLUME 7.3 fL (7.4-10.4); MONOCYTES % (AUTO) 7 % (2-9); NEUTROPHILS % (AUTO) 71 % (42-75); PLATELET COUNT 244 x10^3/uL (130-400); RED CELL DISTRIBUTION WIDTH 14.2 % (9.6-15.2)
[2020-07-04 17:42] LABS: MD NO
[2020-07-04 17:49] LABS: ALBUMIN 3.2 g/dL (3.4-5.0); ANION GAP 7 mmol/L (5-15); CHLORIDE 109 mmol/L (98-107); CREATININE 1.09 mg/dL (0.55-1.02)
[2020-07-04 17:53] LABS: TROPONIN I < 0.015 ng/mL (0.000-0.045)
[2020-07-04] MEDS ORDERED: PROMETHAZINE 25 MG/ML, 1ML IM ONE (18:30)
[2020-07-04] MEDS ORDERED: PROMETHAZINE 25 MG/ML, 1ML ONE (18:49)
--- NOTE | 2020-07-04 19:00 | NUR ---
REPORT FROM JOIE MARTINEZ. PT TO HAVE A CTA. PT ASSISTED TO BATHROOM. PT AMBULATORY WITH A STANDBY ASSIST. VSS.
[2020-07-04] MEDS ORDERED: OMNIPAQUE 350 MG/ML, 75ML BOTTLE ONE (20:15)
--- NOTE | 2020-07-04 20:58 | NUR ---
pt assisted to bathroom. Pt ambulatory with a steady gait.
[2020-07-04] MEDS ORDERED: DOXYCYCLINE 100 MG in DEXTROSE 5% 250 ML IV ONE (22:00)
[2020-07-04] MEDS ORDERED: ONDANSETRON ODT 4 MG PO PRN (22:00)
[2020-07-04] MEDS ORDERED: POTASSIUM CHLORIDE 20 MEQ TAB.ER.PRT PO ONE (22:00)
[2020-07-04] MEDS ORDERED: NITROGLYCERIN 0.4 MG BOTTLE (25 TABS) SL PRN (22:00)
[2020-07-04] MEDS ORDERED: BISACODYL 10 MG SUPP PR PRN (22:00)
--- NOTE | 2020-07-04 22:17 | NUR ---
JOSE RN: PT WITH NON CONTRACTED INSURANCE. MIGNON [facility]ORSEYCOMPLIANCE ASSISTANT AT [facility] DENIED TRANFER OF PT DUE TO NO CARD TELE BEDS AVAILABLE AT FACILITY
[2020-07-04] MEDS ORDERED: DICLOFENAC SODIUM 4 GM PO SCH (22:30)
--- NOTE | 2020-07-04 23:04 | NUR ---
ABX RUNNING. PT WAITING FOR BED ASSIGNMENT. VSS. PT HAS NO NEEDS AT THIS TIME. CALL LIGHT IN REACH
[2020-07-04] MEDS: DOXYCYCLINE 100 MG in DEXTROSE 5% 250 ML IV SCH (23:15)
[2020-07-04 23:57] LABS: TROPONIN I < 0.015 ng/mL (0.000-0.045)
[2020-07-05 00:45] VITALS: BP 164/76
[2020-07-05] MEDS: DICLOFENAC MC SCH ×2 (01:00→09:00)
[2020-07-05] MEDS: HEPARIN 5,000 UNITS/ML, 1ML SQ SCH ×3 (01:36→14:00)
[2020-07-05] MEDS: GABAPENTIN 400 MG CAPSULE PO SCH ×2 (01:36→08:28)
[2020-07-05] MEDS: NS + 20MEQ KCL 1,000 ML IV SCH ×2 (01:36→14:00)
[2020-07-05] MEDS: OXYcodone IR 5MG TABLET PO SCH ×3 (01:36→11:07)
[2020-07-05 05:44] VITALS: BP 108/94
[2020-07-05] MEDS ORDERED: LEVOTHYROXINE 100 MCG TABLET PO SCH (06:00)
[2020-07-05] MEDS ORDERED: OMEPRAZOLE 20 MG CAPSULE.DR PO SCH (06:00)
[2020-07-05 06:05] LABS: BASOPHILS % (AUTO) 1 % (0-1); EOSINOPHILS % (AUTO) 2 % (1-7); LYMPHOCYTES % (AUTO) 23 % (22-44); MEAN CORPUSCULAR HGB CONC 33.5 g/dL (32.4-35.8); MEAN PLATELET VOLUME 7.4 fL (7.4-10.4); MONOCYTES % (AUTO) 9 % (2-9); NEUTROPHILS % (AUTO) 65 % (42-75); PLATELET COUNT 237 x10^3/uL (130-400); RED BLOOD COUNT 3.76 x10^6/uL (3.82-5.3); RED CELL DISTRIBUTION WIDTH 14.1 % (9.6-15.2)
[2020-07-05 06:08] LABS: MD NO
[2020-07-05 06:16] LABS: ANION GAP 8 mmol/L (5-15); CALCIUM 8.4 mg/dL (8.5-10.1); CHLORIDE 110 mmol/L (98-107)
[2020-07-05 06:21] LABS: CHOL/HDL RATIO 1.9; CHOLESTEROL, TOTAL 148 mg/dL (140-239); HDL CHOL % 53 % (28-40); HDL CHOLESTEROL (DIRECT) 78 mg/dL (40-60); LDL CHOLESTEROL,CALCULATED 62 mg/dL (54-169); LDL/HDL RATIO 0.8 (0.5-3.0); TRIGLYCERIDES 42 mg/dL (50-200); TROPONIN I < 0.015 ng/mL (0.000-0.045); VLDL CHOLESTEROL 8 mg/dL (0-25)
[2020-07-05 08:03] VITALS: BP 146/80
[2020-07-05] MEDS ORDERED: REGADENOSON 0.4 MG/5 ML SYRINGE ONE (08:21)
[2020-07-05] MEDS ORDERED: LISINOPRIL 20 MG TABLET PO SCH (09:00)
[2020-07-05] MEDS ORDERED: DULOXETINE 30 MG CAPSULE.DR PO SCH (09:00)
[2020-07-05] MEDS ORDERED: CHOLECALCIFEROL 1,000 UNIT TABLET PO SCH (09:00)
[2020-07-05] MEDS ORDERED: HYDROCHLOROTHIAZIDE 12.5 MG CAPSULE PO SCH (09:00)
[2020-07-05] MEDS ORDERED: AMLODIPINE 10 MG TAB PO SCH (09:00)
[2020-07-05] MEDS: DOXYCYCLINE 100 MG in DEXTROSE 5% 250 ML IV SCH (11:10)
[2020-07-05 12:32] VITALS: BP 181/68
[2020-07-05] MEDS ORDERED: CEFD300C37 PO (13:13)
[2020-07-05] MEDS ORDERED: DOXY100C2 PO (13:13)
[2020-07-05] MEDS ORDERED: LIDODERM 5% PATCH TD SCH (13:30)
== END 2020-07-05 15:45 | disposition home or self-care (01) ==
LOC: ED 17:33 → INTOOBSV 21:41 → EDIP 21:41 → 5SO 07-05 00:34 → DCLOUNGE 07-05 15:20
PROVIDERS: ADMIT Internal Medicine; ATTEND Hospitalist
DX: R07.89 Other chest pain (principal); R06.00 Dyspnea, unspecified; E87.6 Hypokalemia; K58.9 Irritable bowel syndrome, unspecified; K21.9 Gastro-esophageal reflux disease without esophagitis; F31.9 Bipolar disorder, unspecified; M34.1 CR(E)ST syndrome; I78.1 Nevus, non-neoplastic; I10 Essential (primary) hypertension; G62.9 Polyneuropathy, unspecified; E89.0 Postprocedural hypothyroidism; G89.29 Other chronic pain; K22.4 Dyskinesia of esophagus; M06.9 Rheumatoid arthritis, unspecified; Z85.3 Personal history of malignant neoplasm of breast; Z88.0 Allergy status to penicillin; Z79.899 Other long term (current) drug therapy; Z90.710 Acquired absence of both cervix and uterus; Z87.891 Personal history of nicotine dependence; Z90.13 Acquired absence of bilateral breasts and nipples; Z96.653 Presence of artificial knee joint, bilateral
CPT/HCPCS: 36415; 71045; 71275; 78452; 80048; 80061; 82040; 83735; 83880; 84145; 84484; 85025; 85379; 93005; 93017; 96365; 96366; 96367; 96368; 96372; 96375; 99285; A9502; G0378; J1170; J1644; J2405; J2550; J2785; J3480; J7060; Q9967

== ENCOUNTER 2020-07-12 00:11 | Emergency (ER) | payer OTHER ==
[~2020-07-12] VITALS: Ht 157.5 cm; Wt 55.5 kg
[~2020-07-12 00:11] MED LIST changes: +CEFD300C37 PO; +DOXY100C2 PO
[2020-07-12] MEDS ORDERED: SODIUM CHLORIDE FLUSH 10ML SYR IVF ONE (00:30)
[2020-07-12] MEDS ORDERED: ONDANSETRON 2MG/ML, 2ML IVPush ONE (00:30)
--- NOTE | 2020-07-12 00:30 | NUR ---
patient resting in bed restless, dyspneic and c/o CP and SOB with abdominal pain. patient follows commands. Iv already established with EMS. IV fluids started. VS remain stable. warm blankets applied. patient c/o of "im cold".
[2020-07-12] MEDS ORDERED: ONDANSETRON 2MG/ML, 2ML ONE (00:39)
[2020-07-12 00:47] LABS: BASOPHILS % (AUTO) 1 % (0-1); EOSINOPHILS % (AUTO) 3 % (1-7); LYMPHOCYTES % (AUTO) 29 % (22-44); MEAN CORPUSCULAR HEMOGLOBIN 30.3 pg (27.0-34.8); MEAN CORPUSCULAR HGB CONC 33.3 g/dL (32.4-35.8); MEAN PLATELET VOLUME 7.2 fL (7.4-10.4); MONOCYTES % (AUTO) 9 % (2-9); NEUTROPHILS % (AUTO) 58 % (42-75); PLATELET COUNT 316 x10^3/uL (130-400); RED BLOOD COUNT 4.07 x10^6/uL (3.82-5.3); RED CELL DISTRIBUTION WIDTH 14.2 % (9.6-15.2)
[2020-07-12 00:58] LABS: MD NO
[2020-07-12 00:59] LABS: ALANINE AMINOTRANSFERASE 20 U/L (12-78); ALBUMIN 3.7 g/dL (3.4-5.0); ANION GAP 11 mmol/L (5-15); CALCIUM 9.2 mg/dL (8.5-10.1); CHLORIDE 109 mmol/L (98-107); CREATININE 1.66 mg/dL (0.55-1.02)
[2020-07-12] MEDS ORDERED: SODIUM CHLORIDE 0.9% 1,000ML IVBOLUS ONE (01:00)
[2020-07-12] MEDS ORDERED: PROMETHAZINE 25 MG/ML, 1ML IM ONE (01:00)
[2020-07-12 01:04] LABS: ALKALINE PHOSPHATASE 78 U/L (45-117); BILIRUBIN,TOTAL 0.7 mg/dL (0.2-1.0); TOTAL PROTEIN 7.8 g/dL (6.4-8.2); TROPONIN I < 0.015 ng/mL (0.000-0.045)
[2020-07-12] MEDS ORDERED: PROMETHAZINE 25 MG/ML, 1ML ONE (01:07)
--- NOTE | 2020-07-12 01:29 | NUR ---
patient heading to CT now via [facility]
[2020-07-12] MEDS ORDERED: FENTANYL PF 100 MCG/2ML IVPush ONE (01:30)
[2020-07-12] MEDS ORDERED: POTASSIUM CHLORIDE 10% 40 MEQ/30 ML UDC PO ONE (01:30)
--- NOTE | 2020-07-12 02:22 | NUR ---
ambulated patient to bathroom with standby assist. patient was not waiting for RN's cues to go to bathroom and pushed past RN to walk across stock to bathroom. she did not wear her mask when doing this. RN did educate patient that she needs to follow hospital guidelines when leaving her room. patient acknowledges teaching. slightly off balance during ambulation due to patient rushing to use bathroom. denies SOB, dypsnea. she is smiling and laughing. eyes open spontaneously. Patient reports that "my chest pain has gone way down." she declines pain medication at this time.
[2020-07-12 02:27] LABS: MICROSCOPIC NOT IND
--- NOTE | 2020-07-12 02:46 | NUR ---
[facility] [phone] CALL FOR RIDE IF DC'ED
--- NOTE | 2020-07-12 03:00 | NUR ---
I administered potassium that was ordered d/t decreased K level in labs. Patient notified of reasoning for potassium replenishment. Patient reports "oh, i forgot to take nmy potassium yesterday." patient took small sip of liquid potassium and hands it back to nurse and states "that stuff is awful. i take pills. ill take my pills when i get home".
--- NOTE | 2020-07-12 03:10 | NUR ---
discharge instructions reviewed with patient. she had no further questions. patient did not come with shoes or winter coat. I offered to get her both and she declined and said she would call her to bring hers from home. i offered her a taxi voucher and she declined this as well to call her to come get her. patient had steady gait to use phone near reg. desk. patient given blanket that she was supplied with from EMS. IV dc'd per protocol. prescription handed directly to patient. in NAD on discharge. all personal belongings with patient. she was not brought with her purse, only clothes, and i informed her of such.
[2020-07-12 03:52] VITALS: BP 155/71
--- NOTE | 2020-07-12 04:45 | NUR ---
patient remains in lobby. around dc time, patient called a few times with a few different numbers and unable to get ahold of him at that time. RN rounded back to this and asked registration if patient had finally gone home with her ride and i was notified that patient was in the bathroom. RN to bathroom door. patient stated she'd be right out. security also was called to the bathroom. They stated to also re-address her ride. Patient states that she got ahold of her 15 minutes ago and he said he would come get her. I offered her a cab voucher 2 more times and patient declined. A phone number was found in the notes of patient's chart for Jillian to be notified if patient was d/c'd and needed ride home. this number was called 4 times and each time said "you have dialed a non-working number. please dial again". patient had steady gait. Patient did need intermittent repeated requests to keep her mask on. patient placed back out in lobby to wait for her . Patient smiling and laughing with staff.
== END 2020-07-12 03:55 | disposition home or self-care (01) ==
LOC: ED 00:24
DX: R10.84 Generalized abdominal pain (principal); R11.2 Nausea with vomiting, unspecified; R07.2 Precordial pain; R06.02 Shortness of breath; R94.31 Abnormal electrocardiogram [ECG] [EKG]; Z72.9 Problem related to lifestyle, unspecified; I10 Essential (primary) hypertension; K21.9 Gastro-esophageal reflux disease without esophagitis; Z85.3 Personal history of malignant neoplasm of breast; Z90.89 Acquired absence of other organs; Z90.49 Acquired absence of other specified parts of digestive tract; Z90.710 Acquired absence of both cervix and uterus
CPT/HCPCS: 36415; 71045; 74176; 80053; 80320; 81003; 83690; 83880; 84484; 85025; 93005; 96361; 96372; 96374; 99284; J2405; J2550; J7030; G0480